=== PATIENT | female | born 1990 | race American Indian/Alaskan Native ===

== ENCOUNTER 2016-07-12 16:48 | Observation (INO) | payer MEDICAID, OTHER ==
[2016-07-12] MEDS ORDERED: REGLAN IV ONE (19:25)
[2016-07-12] MEDS ORDERED: BENADRYL IV ONE (19:26)
[2016-07-12] MEDS ORDERED: NACL 0.9% 1000 ML 1,000 ML IV ONE (19:26)
--- NOTE | 2016-07-12 19:31 | Emergency Department Report ---
ED N/V/D HPI - General Chief complaint: Nausea/Vomiting/Diarrhea Stated complaint: NAUSEA/VOMITING/PREG Time Seen by Provider: 07/12/16 19:24 Source: patient Mode of arrival: Ambulatory Limitations: No Limitations - History of Present Illness Initial comments: 25-year-old female presents with complaint of 2 days of persistent nausea and vomiting. Has had episodes of hyperemesis gravidarum and prior pregnancies and multiple episodes of nausea and vomiting during this . Last menstrual period 05/14/2016. MD complaint: nausea, vomiting, abdominal pain Onset/Timin -: days(s) Description of Vomiting: food contents, watery Associated Abdominal Pain: Yes Location: [place] Severity: moderate Quality: cramping Consistency: constant Improves with: none Context: other (patient is ) - Related Data Previous Rx's Medication Instructions Recorded Last Taken Type Loratadine [Claritin RAPDIS] 10 mg PO QDAY #30 tab.rapdis 06/27/14 Unknown Rx Doxylamine/Pyridoxine HCl 1 each PO QHS PRN #30 tablet. 06/24/16 Unknown Rx [Christy De Oliveira 10-10 mg Tablet] Vit W-Ca,Fe,FA(<1 mg) 1 each PO QDAY #30 tablet 06/24/16 Unknown Rx [ Vitamins] Allergies Allergy/AdvReac Type Severity Reaction Status Date / Time naproxen AdvReac Itching Verified 05/21/14 12:28 ED Review of Systems ROS: Stated complaint: NAUSEA/VOMITING/PREG Other details as noted in HPI ED Past Medical Hx - Surgical History Additional Surgical History: jaw reconstriction - Social History Smoking Status: Never Smoker Substance Use Type: None - Medications Home Medications: Home Medications Medication Instructions Recorded Confirmed Last Taken Type Loratadine [Claritin RAPDIS] 10 mg PO QDAY #30 tab.rapdis 06/27/14 Unknown Rx Doxylamine/Pyridoxine HCl 1 each PO QHS PRN #30 tablet. 06/24/16 Unknown Rx [Christy De Oliveira 10-10 mg Tablet] Vit W-Ca,Fe,FA(<1 mg) 1 each PO QDAY #30 tablet 06/24/16 Unknown Rx [ Vitamins] ED Physical Exam - General Limitations: No Limitations General appearance: alert, other (patient actively vomiting) - Head Head exam: Present: atraumatic, normocephalic - Eye Eye exam: Present: normal appearance, PERRL, EOMI - ENT ENT exam: Present: mucous membranes moist - Neck Neck exam: Present: normal inspection - Respiratory Respiratory exam: Present: normal lung sounds bilaterally. Absent: respiratory distress - Cardiovascular Cardiovascular Exam: Present: regular rate, normal rhythm. Absent: systolic murmur, diastolic murmur, rubs, gallop - GI/Abdominal GI/Abdominal exam: Present: soft, normal bowel sounds, other (epigastric tenderness) - Extremities Exam Extremities exam: Present: normal inspection - Back Exam Back exam: Present: normal inspection - Neurological Exam Neurological exam: Present: alert, oriented X3 - Psychiatric Psychiatric exam: Present: normal affect, normal mood - Skin Skin exam: Present: warm, dry, intact, normal color. Absent: rash ED Course Vital Signs 07/12/16 16:53 Temperature 98.8 F Pulse Rate 106 H Respiratory 18 Rate Blood Pressure 113/81 O2 Sat by Pulse 100 Oximetry - Reevaluation(s) Reevaluation #1: 07/13/16 00:57 case d/w Dr. Cordova and Dr. Hill OBGYN composition molder. Pt to be admitted to mother -baby unit ED Medical Decision Making - Lab Data Result diagrams: 07/12/16 19:45 07/12/16 19:45 - Medical Decision Making A/P: Hyperemesis 1-discussed with Dr. Hill SAL[employer] SOLUTIONS REPRESENTATIVE, as patient has been given IV fluid Reglan and Benadryl with minimal to no relief of nausea and vomiting will admit to mother baby unit 2-slightly elevated ketones, ultrasound and blood work within normal limits otherwise 3-at this point patient has failed like diclegis, Phenergan and reglan for nausea and vomiting control Critical care attestation.: If time is entered above; I have spent that time in minutes in the direct care of this critically ill patient, excluding procedure time. ED Disposition Clinical Impression: Hyperemesis gravidarum Disposition: OP ADMITTED IP TO THIS HOSP Is pt being admited?: Yes Does the pt Need Aspirin: No Condition: Stable Referrals: PRIMARY CARE,MD [Primary Care Provider] - 3-5 Days
[2016-07-12 20:08] LABS: Bilirubin,Urine NEG (Negative); Blood,Urine NEG (Negative); Ketones,Urine 80 mg/dL (Negative); Leukocyte Esterase,Urine NEG (Negative); Mucus,Urine 3+ /HPF; Nitrite,Urine NEG (Negative)
[2016-07-12 20:11] LABS: Basophils % (Auto) 0.2 % (0.0-1.8); Eosinophils % (Auto) 0.5 % (0.0-4.3); Hemoglobin 14.3 gm/dl (10.1-14.3); White Blood Count 7.3 K/mm3 (4.5-11.0)
[2016-07-12 20:29] LABS: B-Hydroxybutyrate 11.7 mg/dL (0.2-2.8)
[2016-07-12 20:30] LABS: Alanine Aminotransferase 12 units/L (7-56); Albumin 4.4 g/dL (3.9-5); Albumin/Globulin Ratio 1.5 %; Alkaline Phosphatase 48 units/L (35-129); Anion Gap 19 mmol/L; Bilirubin,Total 0.5 mg/dL (0.1-1.2); Blood Urea Nitrogen 10 mg/dL (7-17); Calcium 9.4 mg/dL (8.4-10.2); Carbon Dioxide 22 mmol/L (22-30); Chloride 100.7 mmol/L (98-107); Glucose 86 mg/dL (65-100); Magnesium 2.1 mg/dL (1.7-2.3); Potassium 3.6 mmol/L (3.6-5.0); Sodium 138 mmol/L (137-145); Total Protein 7.4 g/dL (6.3-8.2)
[2016-07-12 21:05] LABS: Mean Corpuscular HGB Conc 34 % (30-34); Mean Corpuscular Hemoglobin 32 pg (28-32); Mean Corpuscular Volume 94 fl (79-97); Platelet Count 185 K/mm3 (140-440); Red Blood Count 4.48 M/mm3 (3.65-5.03); Red Cell Distribution Width 12.2 % (13.2-15.2)
--- NOTE | 2016-07-12 21:11 | Ultrasound Report ---
FINAL REPORT EXAM: US OB < = 14 WEEKS FETUS HISTORY: abd pain TECHNIQUE: Ultrasound obstetrical transabdominal PRIORS: Correlation with multiple prior exams FINDINGS: There is gestational sac present within the uterus. pole is identified with crown-rump length 21.3 centimeters corresponding to estimated gestational age of 8 weeks 5 days. This demonstrates adequate growth from prior exam. cardiac activity is present with heart rate of 166 beats per minute The right ovary is 3.1 x 2.4 x 2.4 centimeters. Left ovary was not identified IMPRESSION: Single live intrauterine gestation estimated at 8 weeks 5 days demonstrating adequate interval growth cardiac activity seen with heart rate of 166 beats per minute
--- NOTE | 2016-07-12 21:13 | Ultrasound Report ---
FINAL REPORT EXAM: US OB TRANSVAGINAL HISTORY: abd pain TECHNIQUE: Transvaginal ultrasound obstetrical PRIORS: None. FINDINGS: Gestational sac is identified within the uterus. pole identified with crown-rump length 2.10 centimeters corresponds to estimated gestational age of 8 weeks 5 days. cardiac activity present with heart rate of 166 beats per minute IMPRESSION: Single live intrauterine gestation estimated gestational age 8 weeks 5 days
[2016-07-12] MEDS ORDERED: D5LR 1,000 ML IV SCH (22:00)
[2016-07-13] MEDS ORDERED: D5LR 1,000 ML IV SCH (03:15)
[2016-07-13] MEDS ORDERED: ZOFRAN IV PRN (03:15)
[2016-07-13] MEDS: PHENERGAN PR SCH ×4 (04:00→21:15)
[2016-07-13] MEDS: REGLAN IV SCH ×4 (04:00→18:39)
[2016-07-13] MEDS: PRENATAL VITAMIN PO SCH (10:00)
[2016-07-13] MEDS: D5LR 1,000 ML IV SCH ×2 (13:00→18:42)
--- NOTE | 2016-07-13 15:30 | History and Physical Report ---
History of Present Illness Date of examination: 07/13/16 Date of admission: 07/13/16 01:06 History of present illness: This is a 25-year-old black female whose been seen several times in the ER since discovering the in May. Patient been treated in the past with some likely this Reglan Zofran. Patient presented to the emergency room on last evening with complaints and on for outpatient medications work and she received Reglan while in the ER without resolution of her nausea and vomiting and is being admitted for hyperemesis protocol. 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 06/24/16 Unknown Rx [Christy De Oliveira 10-10 mg Tablet] Vit W-Ca,Fe,FA(<1 mg) 1 each PO QDAY #30 tablet 06/24/16 Unknown Rx [ Vitamins] Active Meds: Active Medications Dextrose/Lactated Ringer's (D5lr) 1,000 mls @ 150 mls/hr IV DIRECT HUA Metoclopramide HCl (Reglan) 10 mg IV Q6H HUA Last Admin: 07/13/16 04:00 Dose: 10 mg Multivitamins/Iron/Calcium ( Vitamin) 1 each PO QDAY HUA Ondansetron HCl (Zofran) 4 mg IV Q6H PRN PRN Reason: N/V unrelieved by Reglan Promethazine HCl (Phenergan) 25 mg MI Q6H HUA Last Admin: 07/13/16 04:00 Dose: 25 mg Review of Systems Constitutional: weight loss Eyes: deferred Cardiovascular: no chest pain, no orthopnea Respiratory: no cough Breasts: deferred Gastrointestinal: abdominal pain, nausea, vomiting Genitourinary: no vaginal bleeding, no vaginal discharge - Vital Signs Vital signs: Vital Signs Temp Pulse Resp BP Pulse Ox 98.8 F 106 H 18 113/81 100 07/12/16 16:53 07/12/16 16:53 07/12/16 16:53 07/12/16 16:53 07/12/16 16:53 Temp Pulse Resp BP Pulse Ox 98.6 F 88 18 118/78 98 07/13/16 12:40 07/13/16 12:40 07/13/16 12:40 07/13/16 12:40 07/13/16 01:25 - Physical Exam Breasts: Positive: deferred Cardiovascular: Regular rate Lungs: Positive: Normal air movement Abdomen: Positive: normal appearance, soft - Obstetrical FHR comments: Seen on ultrasound Results Result Diagrams: 07/12/16 19:45 07/12/16 19:45 All other labs normal. Assessment and Plan - Patient Problems (1) Hyperemesis gravidarum Current Visit: Yes Status: Acute Plan to address problem: Patient admitted and placed on the hyperemesis protocol
[2016-07-14] MEDS: D5LR 1,000 ML IV SCH ×2 (02:30→08:40)
[2016-07-14] MEDS: PHENERGAN PR SCH (04:06)
[2016-07-14] MEDS: REGLAN IV SCH ×2 (04:17)
[2016-07-14 08:14] VITALS: BP 108/60
[2016-07-14] MEDS ORDERED: BENADRYL ONE ×2 (08:37→11:25)
[2016-07-14] MEDS ORDERED: BENADRYL IV ONE ×2 (09:00→12:00)
[2016-07-14] MEDS ORDERED: REGLAN PO PRN (10:00)
[2016-07-14] MEDS: PRENATAL VITAMIN PO SCH (10:00)
--- NOTE | 2016-07-14 10:06 | Progress Note ---
Assessment and Plan - Patient Problems (1) Hyperemesis gravidarum Current Visit: Yes Status: Acute Plan to address problem: Patient vomiting is improved greatly. Unsure what this reaction and she had. She believes Reglan has helped her. We'll try by mouth Reglan today. Patient has not had breakfast. Will monitor with by mouth Reglan and regular diet and tolerated with discharge this afternoon. Subjective Date of service: 07/14/16 Principal diagnosis: hyperemesis Interval history: Patient has not had any vomiting past 12 hours. But did complain of "My jaw locking up". Patient stated to happen on yesterday and also this morning that resolved with Benadryl. Patient can't states that it happens when she receive an any specific medication and states has not had this before. Patient does state that she desires discharge today Objective - Constitutional Vitals: Vital Signs - 12hr 07/14/16 07/14/16 07/14/16 00:00 04:00 07:25 Temperature 98.2 F 98.5 F Pulse Rate [ 86 Left Brachial] Pulse Rate [ 97 H Left] Respiratory 16 16 18 Rate Blood Pressure 131/79 112/74 108/60 [Left Arm] General appearance: Present: no acute distress - Respiratory Respiratory effort: normal - Cardiovascular Rhythm: regular Extremities: no ischemia, No edema - Gastrointestinal General gastrointestinal: Present: soft, non-tender - Genitourinary Female genitourinary: deferred - Integumentary Integumentary: clear, warm, dry - Labs CBC & Chem 7: 07/12/16 19:45 07/12/16 19:45
--- NOTE | 2016-07-14 12:10 | Consultation ---
History of Present Illness - Reason for Consult Consult date: 07/14/16 jaw locking up Requesting physician: JEFFY VALDEZ - History of Present Illness 25-year-old woman who is 9 weeks was admitted to the hospital with nausea vomiting, unable to tolerate oral intake. The patient was started on antiemetics, Reglan and Zofran. Yesterday she experienced her jaw locking up which lasted for 10-15 minutes this was relieved with Benadryl. Patient had 2 episodes today. Stated that when her jaw locked, it felt as if she could not swallow Patient denies chest pain, palpitation, shortness of breath, cough, abdominal pain, hematochezia, dysuria, frequency, focal weakness, dysarthria, fever chills , polydipsia polyuria, hot or cold intolerance, easy bruisability, or rash or bleeding from mucosal membrane, rhinorrhea, epistaxis, earache, tinnitus, blurry vision, eye discharge, anxiety, depression. Other review of systems negative PAST SURGICAL HISTORY: Jaw surgery SOCIAL HISTORY: Denies alcohol, tobacco, drugs FAMILY HISTORY: Denies hypertension, diabetes Medications and Allergies Allergies Allergy/AdvReac Type Severity Reaction Status Date / Time naproxen AdvReac Itching Verified 05/21/14 12:28 Home Medications Medication Instructions Recorded Confirmed Last Taken Type Loratadine [Claritin RAPDIS] 10 mg PO QDAY #30 tab.rapdis 06/27/14 07/13/16 Unknown Rx Doxylamine/Pyridoxine HCl 1 each PO QHS PRN #30 tablet. 06/24/16 07/13/16 Unknown Rx [Christy De Oliveira 10-10 mg Tablet] Vit W-Ca,Fe,FA(<1 mg) 1 each PO QDAY #30 tablet 06/24/16 07/13/16 Unknown Rx [ Vitamins] Metoclopramide [Reglan] 10 mg PO TID #30 tab 07/14/16 Unknown Rx diphenhydrAMINE [Benadryl CAP] 50 mg PO Q8HR PRN #20 capsule 07/14/16 Unknown Rx Active Meds: Active Medications Dextrose/Lactated Ringer's (D5lr) 1,000 mls @ 150 mls/hr IV DIRECT HUA Last Admin: 07/14/16 08:40 Dose: 150 mls/hr Metoclopramide HCl (Reglan) 10 mg PO Q6H PRN PRN Reason: Nausea And Vomiting Multivitamins/Iron/Calcium ( Vitamin) 1 each PO QDAY HUA Last Admin: 07/13/16 10:00 Dose: Not Given Exam - Physical Exam Narrative exam: Gen. appearance: Patient lying in bed, no apparent distress HEENT: Normocephalic, atraumatic, pupils equally round and reactive to light, extraocular movement intact, and no sclericterus,. No JVD or thyromegaly or nodule,neck supple, no carotid bruit ,mucous membranes moist, no exudate or erythema Heart: S1, S2, regular rate and rhythm Lungs: Clear to auscultation bilaterally, breathing comfortable Abdomen: Positive bowel sounds, nontender, nondistended, no organomegaly Extremity: No edema, cyanosis, clubbing Skin: No rash, nodules, warm, dry Neuro: Oriented 3, cranial nerves II-12 intact, speech is fluent, motor and sensory intact - Constitutional Vitals: Temp Pulse Resp BP Pulse Ox 98.5 F 97 H 18 108/60 98 07/14/16 07:25 07/14/16 07:25 07/14/16 07:25 07/14/16 07:25 07/13/16 01:25 Results - Labs CBC & Chem 7: 07/12/16 19:45 07/12/16 19:45 Assessment and Plan LockJaw with sensation of difficulty swallowing secondary to side effects of reglan Recommend that you discontinue Reglan and list as an allergy Continue treatment with Benadryl as needed
--- NOTE | 2016-07-17 14:35 | Discharge Summary ---
Providers - Providers Date of Admission: 07/13/16 01:06 Date of discharge: 07/14/16 Attending physician: JEFFY VALDEZ 07/14/16 11:32 Consult to Physician [CONS] Routine Consulting Provider: DARRYL MUÑOZ Reason For Exam: Jaw locking Place consult to:: yes Notified:: yes Phone number called:: [phone] Was contact made?: Yes If yes, spoke with:: dr muñoz / hospital list Time called:: 11:36 Primary care physician: VERIFICATION REP Hospitalization Condition: Good Procedures: Hyperemesis protocol Hospital course: Please see H&P for details. Patient admitted from and placed on hyperemesis protocol.Her vomiting stopped and at time of discharge was able to tolerate regular food. Her stay was complicated her experiencing a stiffening of her jaw. Hospitalist consult though symptom c/w reaction to reglan. Patient desired discharge home Disposition: DISCHARGED TO HOME OR SELFCARE - Discharge Diagnoses (1) Hyperemesis gravidarum Status: Resolved Core Measure Documentation - Palliative Care Palliative Care/ Comfort Measures: Not Applicable - Core Measures Any of the following diagnoses?: none Exam - Physical Exam Narrative exam: See exam above - Constitutional Vitals: Temp Pulse Resp BP Pulse Ox 98.5 F 97 H 18 108/60 98 07/14/16 07:25 07/14/16 07:25 07/14/16 07:25 07/14/16 07:25 07/13/16 01:25 Plan Activity: advance as tolerated Diet: advance as tolerated Additional Instructions: Our office information given to patient to schedule follow up to start her care Follow up with: JEFFY VALDEZ MD [Staff Physician] - 7 Days PRIMARY CAREMD [Primary Care Provider] - 3-5 Days (CALL [facility] FOR FOLLOW UP VISIT WITHIN ONE WEEK) Forms: [facility] Discharge Summary Prescriptions: diphenhydrAMINE [Benadryl CAP] 50 mg PO Q8HR PRN #20 capsule PRN Reason: Allergic Reaction Metoclopramide [Reglan] 10 mg PO TID #30 tab
== END 2016-07-14 13:30 | disposition home or self-care (01) ==
LOC: ED 16:48 → OB 07-13 01:06
PROVIDERS: ADMIT Obstetrics & Gynecology; ATTEND Obstetrics & Gynecology
DX: O21.0 Mild hyperemesis gravidarum (principal); Z3A.08 8 weeks gestation of pregnancy
CPT/HCPCS: 36415; 76801; 76817; 80053; 81001; 82010; 82150; 83690; 83735; 84702; 85025; 86850; 86900; 86901; 87086; 96361; 96374; 96375; 96376; 99285; G0378; J1200; J2405; J2765; J7030; J7121

== ENCOUNTER 2016-09-16 00:08 | Emergency (ER) | payer MEDICAID ==
[2016-09-16 00:54] VITALS: BP 124/86
[2016-09-16 05:04] LABS: Bilirubin,Urine NEG (Negative); Blood,Urine NEG (Negative); Ketones,Urine NEG (Negative); Leukocyte Esterase,Urine NEG (Negative); Nitrite,Urine NEG (Negative); Protein,Urine <15 mg/dL mg/dL (Negative); Urobilinogen,Urine < 2.0 mg/dL (<2.0)
== END 2016-09-16 04:40 | disposition left against medical advice (07) ==
LOC: ED 00:08
DX: R10.30 Lower abdominal pain, unspecified (principal); Z53.21 Procedure and treatment not carried out due to patient leaving prior to being seen by health care provider
CPT/HCPCS: 81001; 81025

== ENCOUNTER 2016-10-05 19:46 | Outpatient (CLI) | payer MEDICAID ==
[2016-10-05 20:03] VITALS: BP 116/72
[2016-10-05] MEDS ORDERED: LACTATED RINGERS 500 ML IV ONE (20:21)
[2016-10-05 20:38] LABS: Bilirubin,Urine NEG (Negative); Blood,Urine NEG (Negative); Ketones,Urine 80 mg/dL (Negative); Leukocyte Esterase,Urine TR (Negative); Mucus,Urine FEW /HPF; Nitrite,Urine NEG (Negative); Protein,Urine <15 mg/dL mg/dL (Negative); WBC,Urine < 1.0 /HPF (0.0-6.0)
== END 2016-10-05 22:00 | disposition home or self-care (01) ==
LOC: TRG 19:46
PROVIDERS: ATTEND Obstetrics & Gynecology
DX: Z34.92 Encounter for supervision of normal pregnancy, unspecified, second trimester (principal); Z3A.20 20 weeks gestation of pregnancy
CPT/HCPCS: 81001; 96360; J7120

== ENCOUNTER 2016-11-14 21:10 | Outpatient (CLI) | payer OTHER, MEDICAID ==
[2016-11-14] MEDS ORDERED: LACTATED RINGERS 1,000 ML ONE (22:24)
[2016-11-14] MEDS ORDERED: LACTATED RINGERS 500 ML IV ONE (23:42)
[2016-11-14] MEDS ORDERED: LACTATED RINGERS 1,000 ML IV ONE (23:45)
[2016-11-14 23:48] VITALS: BP 135/80
[2016-11-15 00:15] LABS: Bilirubin,Urine NEG (Negative); Blood,Urine SM (Negative); Ketones,Urine NEG (Negative); Leukocyte Esterase,Urine NEG (Negative); Mucus,Urine FEW /HPF; Nitrite,Urine NEG (Negative); Protein,Urine <15 mg/dL mg/dL (Negative)
== END 2016-11-15 00:38 | disposition home or self-care (01) ==
LOC: TRG 21:10
PROVIDERS: ATTEND Obstetrics & Gynecology
DX: O47.02 False labor before 37 completed weeks of gestation, second trimester (principal); Z3A.26 26 weeks gestation of pregnancy
CPT/HCPCS: 81001; 96360; J7120

== ENCOUNTER 2016-12-12 17:24 | Outpatient (CLI) | payer OTHER, MEDICAID ==
[2016-12-12] MEDS ORDERED: LACTATED RINGERS 500 ML IV ONE (18:39)
[2016-12-12] MEDS ORDERED: TYLENOL PO ONE (19:10)
[2016-12-12] MEDS ORDERED: ZOFRAN IV ONE (19:11)
[2016-12-12] MEDS ORDERED: LACTATED RINGERS 1,000 ML IV ONE (19:11)
[2016-12-12 19:22] VITALS: BP 113/74
== END 2016-12-12 21:40 | disposition home or self-care (01) ==
LOC: TRG 17:24
PROVIDERS: ATTEND Obstetrics & Gynecology
DX: O47.03 False labor before 37 completed weeks of gestation, third trimester (principal); Z3A.30 30 weeks gestation of pregnancy
CPT/HCPCS: 96361; 96374; J2405; J7120

== ENCOUNTER 2016-12-21 17:56 | Outpatient (CLI) | payer OTHER, MEDICAID ==
[2016-12-21 18:05] VITALS: BP 96/65
[2016-12-21] MEDS ORDERED: LACTATED RINGERS 500 ML IV ONE (18:21)
[2016-12-21] MEDS ORDERED: TYLENOL PO ONE (19:00)
[2016-12-21] MEDS ORDERED: BRETHINE SUB-Q ONE (19:00)
[2016-12-21] MEDS ORDERED: CELESTONE SOLUSPAN IM ONE ×2 (19:25→20:30)
[2016-12-21] MEDS ORDERED: BRETHINE IVP ONE (20:00)
== END 2016-12-21 20:38 | disposition left against medical advice (07) ==
LOC: TRG 17:56
PROVIDERS: ATTEND Obstetrics & Gynecology
DX: O47.03 False labor before 37 completed weeks of gestation, third trimester (principal); Z3A.31 31 weeks gestation of pregnancy
CPT/HCPCS: 82731; J3105; J7120; 36415; J0702

== ENCOUNTER 2016-12-22 12:07 | Inpatient (IN) | payer OTHER, MEDICAID ==
[2016-12-22] MEDS ORDERED: LACTATED RINGERS 1,000 ML ONE (12:33)
[2016-12-22] MEDS ORDERED: LACTATED RINGERS 500 ML IV ONE (13:45)
[2016-12-22] MEDS ORDERED: CELESTONE SOLUSPAN IM ONE (14:00)
[2016-12-22] MEDS: TYLENOL PO PRN (15:35)
[2016-12-22] MEDS ORDERED: COLACE PO PRN (15:49)
[2016-12-22] MEDS ORDERED: BENADRYL PO PRN (15:49)
[2016-12-22] MEDS ORDERED: ZOFRAN IV PRN (15:49)
[2016-12-22] MEDS ORDERED: ROBITUSSIN DM PO PRN (15:49)
[2016-12-22] MEDS ORDERED: DEEP SEA NS PRN (15:49)
[2016-12-22 16:07] LABS: Urine Drugs of Abuse Note Disclamer
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
[2016-12-22 16:17] LABS: Bilirubin,Urine NEG (Negative); Blood,Urine NEG (Negative); Ketones,Urine 20 mg/dL (Negative); Leukocyte Esterase,Urine NEG (Negative); Mucus,Urine FEW /HPF; Nitrite,Urine NEG (Negative); Protein,Urine <15 mg/dL mg/dL (Negative); Urobilinogen,Urine < 2.0 mg/dL (<2.0)
[2016-12-22] MEDS: LACTATED RINGERS 1,000 ML IV SCH (17:05)
[2016-12-22] MEDS ORDERED: TUMS PO ONE (18:00)
[2016-12-22 22:41] LABS: Hematocrit 31.7 % (30.3-42.9); Hemoglobin 11.1 gm/dl (10.1-14.3); Mean Corpuscular HGB Conc 35 % (30-34); Mean Corpuscular Hemoglobin 33 pg (28-32); Mean Corpuscular Volume 96 fl (79-97); Platelet Count 144 K/mm3 (140-440); Red Blood Count 3.32 M/mm3 (3.65-5.03); Red Cell Distribution Width 12.9 % (13.2-15.2); White Blood Count 13.1 K/mm3 (4.5-11.0)
[2016-12-22 23:11] LABS: HIV-1 Antigen p24 Non React (Non React); HIVR-1/2 Ab Non React (Non React)
[2016-12-22 23:38] LABS: Basophils % (Manual) 0 % (0.0-1.8); Blastocytes % (Manual) 0 %; Eosinophils % (Manual) 0 % (0.0-4.3)
[2016-12-22 23:40] LABS: Anisocytosis 1+
[2016-12-22 23:41] LABS: Diff Status Complete; Platelet Estimate Consistent w Auto
[2016-12-23] MEDS: AMBIEN PO PRN ×2 (00:12→22:28)
[2016-12-23] MEDS: LACTATED RINGERS 1,000 ML IV SCH ×3 (03:48→18:36)
[2016-12-23] MEDS: MYLICON PO PRN (04:15)
--- NOTE | 2016-12-23 07:49 | Admit Criteria Form ---
Admission Criteria Documentation: OBSTETRIC AND GYNECOLOGIC DISEASE GRG Clinical Indications for Admission to Inpatient Care (Place 'X' for any and all applicable criteria): Hospital admission is needed for appropriate care of the patient because of 1 or more of the following (1)(2)(3): [ ]I. Hemodynamic instability, as indicated by 1 or more of the following (1)( 2)(3)(4)(5): [ ]a) Vital signs or other findings not as expected for chronic patient condition or baseline [ ]b) Instability indicated by 1 or more of the following: [ ]i) Hypotension [ ]ii) Symptomatic tachycardia unresponsive to treatment (eg, analgesia, fluids, sedation as indicated) [ ]iii) Inadequate perfusion indicated by 1 or more of the following: [ ]A. Lactic acidosis (greater than 2 mmol/ L) [ ]B. New abnormal capillary refill ( greater than 3 seconds) [ ]C. Reduced urine output [ ]D. New altered mental status [ ]iv) Orthostatic vital sign changes unresponsive to treatment (eg, fluids) [ ]v) Multiple IV fluid boluses required to maintain adequate blood pressure or perfusion [ ]vi) IV inotropic or vasopressor medication required to maintain adequate blood pressure or perfusion [ ]II. Obstetric infection requiring hospitalization indicated by 1 or more of the following(13)(14): [ ]a) Chorioamnionitis [ ]b) Endometritis (except mild endometritis) [ ]c) Pelvic abscess [ ]d) Peritonitis [ ]e) Septic pelvic thrombophlebitis [ ]III. Amniotic fluid or pulmonary embolism(4)(5)(6) [ ]IV. Suspected peritonitis or ectopic requiring monitoring beyond scope of 24 hours or observation care(7)(8) [ ]V. compromise requiring hospitalization indicated by ALL of the following(9)(10): [ ]a) compromise indicated by 1 or more of the following(11): [ ]i) Abnormal heart rate monitoring [ ]ii) Abnormal contraction stress test [ ]iii) Abnormal biophysical profile [ ]iv) Abnormal Doppler flow in vessels (ie, Doppler velocimetry) (12) [ ]b) Persistence of compromise indicators during evaluation and observation monitoring [ ]. Ovarian hyperstimulation syndrome requiring hospitalization[A] indicated by ALL of the following(15): [ ]a) Recent ovarian stimulation with gonadotropins, or evidence on ultrasound of spontaneous emergence of large number of ovarian follicles [ ]b) Evidence of severe ovarian hyperstimulation syndrome indicated by 1 or more of the following: [ ]i) Abdominal pain unresponsive to oral therapy [ ]ii) Acute respiratory distress syndrome [ ]iii) Electrolyte imbalance ( eg, hyponatremia, hyperkalemia) [ ]iv) Elevated liver enzymes [ ]v) Evidence of thromboembolism [ ]vi) Hemoconcentration (hematocrit greater than 45 % (0.45)) [ ]vii) Inability to maintain oral intake adequate to prevent hemoconcentration [ ]viii) Marked hypotension from baseline (eg, SBP 20 mmHg below patients usual pressure) [ ]ix) Oliguria or anuria [ ]x) Ovarian torsion [ ]xi) Pleural or pericardial effusion on x-ray or echocardiogram [ ]xii) Rapid increase in serum creatinine to greater than 1.2 mg/dL (106 micromoles/L) or creatinine clearance less than 50 mL/min/1.73m2 (0.84 mL/ sec/1.73m2) [ ]xiii) Ruptured ovarian cyst with hemorrhage [ ]xiv) Severe abdominal pain or peritoneal signs [ ]xv) Tense ascites that cannot be managed with paracentesis in outpatient setting [ ]VII.Pelvic infection requiring hospitalization indicated by 1 or more of the following (16): [ ]a) Outpatient treatment has failed or is not appropriate (eg, inpatient monitoring required) [ ]b) Pelvic abscess [ ]c) Surgical emergency cannot be excluded (eg, rigid abdomen) [ ]d) Vomiting precluding outpatient and observation care management VIII. loss complications requiring inpatient medical treatment indicated by 1 or more of the following (4)(7)(9): [ ]a) Fever [ ]b) Peritonitis [ ]c) Sepsis [ ]d) Severe abdominal pain [ ]IX. or patient requiring monitoring for severe heart failure, pulmonary disease, or other comorbid condition (eg, peripartum cardiomyopathy) (4)(17) [ ]X. patient with rupture of membranes requiring hospitalization indicated by ANY ONE of the following: [ ]a) Chorioamnionitis, cloudy amniotic fluid, or other evidence of infection [ ]b) compromise or other need for monitoring (11) [ ]c) Gestation longer than 23 weeks and ANY ONE of the following: [ ]i) Abnormal (noncephalic) presentation [ ]ii) Inadequate home environment (eg, home too far from hospital, unable to rapidly return to hospital) [ ]d) Temperature greater than 100.4 degrees F (38 degrees C)( oral) [ ]e) Threatened labor requiring monitoring beyond scope (eg, over 24 hours) of observation Care [ ] XI. complications, including severe lacerations, infections, or retained placenta (19) [ ] XII.Uterine bleeding with high-risk features indicated by ANY ONE of the following (4): [ ]a) Active major hemorrhage (eg, hemorrhage) [ ]b) Coagulopathy with active bleeding [ ]c) Gestational trophoblastic disease (eg, molar ) (20 ) [ ]d) (longer than 23 weeks) and ANY ONE of the following: [ ]i) Pain [ ]ii) Placental abruption, known or suspected [ ]iii) Placenta accrete, known or suspected(21) [ ]iv) Placenta previa, known or suspected [ ]v) Vasa previa [ ]e) Severe anemia [X]XIII. Obstetric or Gynecologic Disease, condition or symptom for which ANY ONE of the following: [X]a) Emergency and observation care have failed or are not considered appropriate ( Also use General Criteria: Observation Care Criteria as appropriate) [ ]b) Presence of a General Admission Criteria or Pediatric General Admission Criteria The original [facility] fflap content created by [facility] has been revised. The portions of the content which have been revised are identified through the use of italic text or in bold, and [facility] has neither reviewed nor approved the modified material.All other unmodified content is copyright [facility]. Please see references footnoted in the original [facility] edition 2016 Admission Criteria Met: Yes
--- NOTE | 2016-12-23 08:51 | Ultrasound Report ---
OB ULTRASOUND History: well-being. Technique: Transabdominal ultrasound with Doppler interrogation. Gestation: Single Position: Cephalic Amniotic Fluid: Decreased TURNER = 5.5 cm Placenta: Posterior, left lateral Placental Grade: 1 Heart Rate: 141 BPM Cervical length: 4.1 cm (Normal > 3 cm) NEUROANATOMY VISUALIZED: Choroid Plexus Lateral Ventricle ANATOMY VISUALIZED: Stomach Kidneys Bladder Diaphragm 4 Chamber Heart Heart 3 Vessel Cord Abd. Cord Insert SPINE VISUALIZED: Longitudinal Transverse The following are not demonstrated due to maternal body habitus or lie: Cisterna magnum, cervical BPD: 8.4 cm = 34 w 0 d HC: 30.2 cm = 33 w 4 d AC: 26.9 cm = 31 w 0 d FL: 6.2 cm = 32 w 0 d HC/AC Ratio: 1.12 Cephalic Index: 83.0 Estimated Weight: 1839 grams LMP: 05/14/16 Clinical age = 31 w 5 d EDC: 02/18/17 US Gest. Age = 32 w 5 d EDC: 02/11/17
--- NOTE | 2016-12-23 09:06 | Ultrasound Report ---
LIMITED OB ULTRASOUND: Gestation: munson Position: cephalic TURNER = 5.3 cm Normal7-24 Heart Rate: 137 BPM Impression: Oligohydramnios.
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
[2016-12-23] MEDS ORDERED: TUMS PO SCH (10:00)
[2016-12-23] MEDS ORDERED: PRENATAL VITAMIN PO SCH (10:00)
[2016-12-23] MEDS: TYLENOL PO PRN ×2 (11:52→21:18)
[2016-12-23] MEDS ORDERED: VISTARIL PO PRN (14:22)
--- NOTE | 2016-12-23 18:36 | Event Note ---
Date: 12/23/16 Pt asked to talk to me. She's upset because "we aren't doing anything". Explained she has had steroids and IV and we a waiting for [facility] consult and recommendations for low TURNER. I think she would profit from anti-depressant but she refuses at present. She calmed down after conversation.
--- NOTE | 2016-12-23 20:12 | Consultation ---
Past History - Obstetrical History : 4 Medications and Allergies Allergies Allergy/AdvReac Type Severity Reaction Status Date / Time doxylamine succinate Allergy Unknown Verified 09/16/16 01:03 [From Diclegis] pyridoxine HCl Allergy Unknown Verified 09/16/16 01:03 [From Diclegis] naproxen AdvReac Itching Verified 05/21/14 12:28 Home Medications Medication Instructions Recorded Confirmed Last Taken Type Loratadine [Claritin RAPDIS] 10 mg PO QDAY #30 tab.rapdis 06/27/14 07/13/16 Unknown Rx Doxylamine/Pyridoxine HCl 1 each PO QHS PRN #30 tablet.dr 06/24/16 07/13/16 Unknown Rx [Christy De Oliveira 10-10 mg Tablet] Vit W-Ca,Fe,FA(<1 mg) 1 each PO QDAY #30 tablet 06/24/16 07/13/16 Unknown Rx [ Vitamins] Metoclopramide [Reglan] 10 mg PO TID #30 tab 07/14/16 Unknown Rx diphenhydrAMINE [Benadryl CAP] 50 mg PO Q8HR PRN #20 capsule 07/14/16 Unknown Rx Active Meds: Active Medications Acetaminophen (Tylenol) 650 mg PO Q6H PRN PRN Reason: Pain, Mild (1-3) Last Admin: 12/23/16 11:52 Dose: 650 mg Calcium Carbonate/Glycine (Tums) 1,000 mg PO QDAY [facility] Last Admin: 12/23/16 11:32 Dose: 1,000 mg Diphenhydramine HCl (Benadryl) 25 mg PO Q6H PRN PRN Reason: Itching Docusate Sodium (Colace) 100 mg PO Q12H PRN PRN Reason: Constipation Guaifenesin (Robitussin Dm) 10 ml PO Q6H PRN PRN Reason: Cough Hydroxyzine Pamoate (Vistaril) 50 mg PO Q6H PRN PRN Reason: Anxiety Lactated Ringer's (Lactated Ringers) 1,000 mls @ 125 mls/hr IV DIRECT HUA Last Admin: 12/23/16 18:36 Dose: 125 mls/hr Multivitamins/Iron/Calcium ( Vitamin) 1 each PO QDAY HUA Last Admin: 12/23/16 10:05 Dose: 1 each Ondansetron HCl (Zofran) 4 mg IV Q6H PRN PRN Reason: Nausea And Vomiting Last Admin: 12/23/16 11:33 Dose: 4 mg Simethicone (Mylicon) 80 mg PO Q6H PRN PRN Reason: Gas pain Last Admin: 12/23/16 04:15 Dose: 80 mg Sodium Chloride (Deep Sea) 2 spray NS Q4H PRN PRN Reason: Congestion Zolpidem Tartrate (Ambien) 10 mg PO ONCE PRN PRN Reason: Sleep Last Admin: 12/23/16 00:12 Dose: 10 mg - Vital Signs Vital signs: Vital Signs Pulse BP 78 110/75 12/22/16 12:22 12/22/16 12:22 Temp Pulse Resp BP Pulse Ox 97.1 F L 88 20 115/67 100 12/23/16 16:20 12/23/16 19:51 12/23/16 16:20 12/23/16 19:51 12/23/16 12:03 Results Result Diagrams: 12/22/16 21:59 Abnormal lab results 12/22/16 Range/Units 21:59 WBC 13.1 H (4.5-11.0) K/mm3 RBC 3.32 L (3.65-5.03) M/mm3 MCH 33 H (28-32) pg MCHC 35 H (30-34) % RDW 12.9 L (13.2-15.2) % Seg Neuts % (Manual) 94.0 H (40.0-70.0) % Lymphocytes % (Manual) 4.0 L (13.4-35.0) % Seg Neutrophils # Man 12.3 H (1.8-7.7) K/mm3 Lymphocytes # (Manual) 0.5 L (1.2-5.4) K/mm3 All other labs normal. Assessment and Plan [facility] Pt seen [facility] ordered Full consult will be faxed to L&D
[2016-12-24] MEDS: MYLICON PO PRN (01:16)
[2016-12-24] MEDS: LACTATED RINGERS 1,000 ML IV SCH (03:42)
[2016-12-24] MEDS: TYLENOL PO PRN (04:24)
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
--- NOTE | 2016-12-24 08:17 | Ultrasound Report ---
ULTRASOUND BIOPHYSICAL PROFILE: History: well being, oligohydramnios Technique: Transabdominal ultrasound with Doppler interrogation. 2 - breathing movements 2 - movements 2 - posture and tone 2 - Qualitative amniotic fluid volume 8 - TOTAL SCORE OF POSSIBLE 8 Heart Rate (bpm) 166
[2016-12-24 08:32] VITALS: BP 100/57
== END 2016-12-24 09:13 | disposition home or self-care (01) | DRG 781 ==
LOC: TRG 12:07 → LD 15:32 → OBSVTOIN 12-23 09:06
PROVIDERS: ADMIT Obstetrics & Gynecology; ATTEND Obstetrics & Gynecology
DX: O41.03X0 Oligohydramnios, third trimester, not applicable or unspecified (principal); O99.343 Other mental disorders complicating pregnancy, third trimester; F32.9 Major depressive disorder, single episode, unspecified; O9A.313 Physical abuse complicating pregnancy, third trimester; Z3A.31 31 weeks gestation of pregnancy; Z88.8 Allergy status to other drugs, medicaments and biological substances; O09.33 Supervision of pregnancy with insufficient antenatal care, third trimester
CPT/HCPCS: 36415; 76805; 76815; 76819; 80307; 81001; 85007; 85025; 86592; 86706; 86762; 86803; 86850; 86900; 86901; 87591; 87806; G0378; J0702; J2405; J7120

== ENCOUNTER 2016-12-24 20:15 | Outpatient (CLI) | payer OTHER, MEDICAID ==
[2016-12-24 21:51] LABS: Bilirubin,Urine NEG (Negative); Blood,Urine NEG (Negative); Ketones,Urine NEG (Negative); Leukocyte Esterase,Urine SM (Negative); Mucus,Urine FEW /HPF; Nitrite,Urine NEG (Negative); Protein,Urine <15 mg/dL mg/dL (Negative)
== END 2016-12-24 23:00 | disposition home or self-care (01) ==
LOC: TRG 20:15
PROVIDERS: ATTEND Obstetrics & Gynecology
DX: Z34.93 Encounter for supervision of normal pregnancy, unspecified, third trimester (principal); Z3A.32 32 weeks gestation of pregnancy
CPT/HCPCS: 81001

== ENCOUNTER 2016-12-31 10:21 | Outpatient (CLI) | payer OTHER, MEDICAID ==
[2016-12-31] MEDS ORDERED: LACTATED RINGERS 500 ML IV ONE (10:26)
[2016-12-31] MEDS ORDERED: BRETHINE SUB-Q ONE (12:21)
[2016-12-31 12:50] VITALS: BP 116/78
[2016-12-31 13:26] LABS: Bacteria,Urine 1+ /HPF (Negative); Bilirubin,Urine NEG (Negative); Blood,Urine NEG (Negative); Ketones,Urine NEG (Negative); Leukocyte Esterase,Urine TR (Negative); Mucus,Urine FEW /HPF; Nitrite,Urine NEG (Negative); Protein,Urine <15 mg/dL mg/dL (Negative); RBC,Urine < 1.0 /HPF (0.0-6.0); Urobilinogen,Urine < 2.0 mg/dL (<2.0); WBC,Urine < 1.0 /HPF (0.0-6.0)
[2016-12-31] MEDS ORDERED: ZOFRAN IV ONE (13:34)
[2016-12-31] MEDS ORDERED: LACTATED RINGERS 1,000 ML ONE (13:43)
== END 2016-12-31 14:53 | disposition home or self-care (01) ==
LOC: TRG 10:21
PROVIDERS: ATTEND Obstetrics & Gynecology
DX: O47.03 False labor before 37 completed weeks of gestation, third trimester (principal); Z3A.33 33 weeks gestation of pregnancy
CPT/HCPCS: 81001; 96360; J2405; J3105; J7120

== ENCOUNTER 2018-11-19 22:05 | Emergency (ER) | payer MEDICAID, OTHER ==
[2018-11-19 22:30] VITALS: BP 130/82
== END 2018-11-20 00:14 | disposition left against medical advice (07) ==
LOC: ED 22:05
DX: R51 Headache (principal); Z53.21 Procedure and treatment not carried out due to patient leaving prior to being seen by health care provider

== ENCOUNTER 2022-02-19 16:29 | Outpatient (CLI) | payer MEDICAID ==
[2022-02-20] MEDS ORDERED: ACETAMINOPHEN 500 MG TAB PO ONE (01:19)
[2022-02-20 01:22] LABS: Amphetamine Screen,Urine PRESUMPTIVE NEGATIVE; Benzodiazepines Screen,Urine PRESUMPTIVE NEGATIVE; Cannabinoid Screen,Urine PRESUMPTIVE NEGATIVE; Cocaine Screen,Urine PRESUMPTIVE NEGATIVE; Methadone Screen,Urine PRESUMPTIVE NEGATIVE; Opiate Screen,Urine PRESUMPTIVE NEGATIVE
[2022-02-20 01:26] LABS: Color,Urine Yellow (Yellow)
[2022-02-20 01:32] LABS: Bacteria,Urine 3+ /HPF (Negative); Mucus,Urine 1+ /HPF
== END 2022-02-20 02:11 | disposition left against medical advice (07) ==
LOC: TRG 16:29 → APU 23:00 → TRG 02-20 02:11
PROVIDERS: ATTEND Obstetrics & Gynecology
DX: O26.892 Other specified pregnancy related conditions, second trimester (principal); R10.9 Unspecified abdominal pain; Z3A.25 25 weeks gestation of pregnancy
CPT/HCPCS: 36415; 80307; 81001; 82731

== ENCOUNTER 2022-03-29 14:23 | Outpatient (CLI) | payer MEDICAID ==
[2022-03-29] MEDS ORDERED: LACTATED RINGERS 500 ML IV ONE (15:00)
[2022-03-29 17:28] LABS: Hematocrit 33.6 % (30.3-42.9); Hemoglobin 11.5 gm/dl (10.1-14.3); Mean Corpuscular HGB Conc 34 % (30-34); Mean Corpuscular Volume 94 fl (79-97); Platelet Count 153 K/mm3 (140-440); Red Blood Count 3.57 M/mm3 (3.65-5.03); Red Cell Distribution Width 12.6 % (13.2-15.2)
[2022-03-29 17:51] LABS: Alanine Aminotransferase 5 units/L (7-56); Albumin 3.4 g/dL (3.9-5); Blood Urea Nitrogen 5 mg/dL (7-17); Calcium 8.7 mg/dL (8.4-10.2); Hemolysis Index 1
[2022-03-29] MEDS ORDERED: ONDANSETRON 4 MG ODT TAB PO NR (18:00)
[2022-03-29 18:02] LABS: BUN/Creatinine Ratio 10
--- NOTE | 2022-03-29 18:51 | Ultrasound Report ---
ULTRASOUND OBSTETRIC LIMITED ULTRASOUND BIOPHYSICAL PROFILE INDICATION / CLINICAL INFORMATION: bpp. Clinical Gestational Age (GA) in weeks, days: 31, 0 TECHNIQUE: Transabdominal. COMPARISON: None available. FINDINGS: BREATHING MOVEMENT = 2 GROSS BODY MOVEMENT = 2 TONE = 2 QUALITATIVE AMNIOTIC FLUID VOLUME = 2 TOTAL BIOPHYSICAL SCORE = 8/8 HEART RATE (beats per minute): 142 ADDITIONAL FINDINGS: None. IMPRESSION: 1. Biophysical Score = 8/8 Signer Name: Sandeep Miramontes DO Signed: 03/29/2022 6:46 PM Workstation Name: [id number]
== END 2022-03-29 18:32 | disposition home or self-care (01) ==
LOC: TRG 14:23 → APU 14:25 → TRG 18:32
PROVIDERS: ATTEND Obstetrics & Gynecology Gynecology
DX: O47.03 False labor before 37 completed weeks of gestation, third trimester (principal); Z3A.31 31 weeks gestation of pregnancy
CPT/HCPCS: 36415; 59025; 76815; 76819; 80053; 85027